=== PATIENT | female | born 1995 | race Two or more races ===

== ENCOUNTER 2017-07-23 18:21 | Emergency (ER) | payer OTHER ==
[~2017-07-23] VITALS: Ht 167.6 cm; Wt 68.0 kg
[~2017-07-23 18:21] MED LIST: BUCALSEP SPRAY30 ML MM; GILTUSS TR TAB1 EACH PO
== END 2017-07-23 22:55 | disposition home or self-care (01) ==
LOC: ER 18:21
DX: S13.4XXA Sprain of ligaments of cervical spine, initial encounter (principal); S46.812A Strain of other muscles, fascia and tendons at shoulder and upper arm level, left arm, initial encounter; V49.3XXA Car occupant (driver) (passenger) injured in unspecified nontraffic accident, initial encounter; Y93.89 Activity, other specified; Y92.488 Other paved roadways as the place of occurrence of the external cause; Y99.8 Other external cause status

== ENCOUNTER 2017-08-01 06:52 | Emergency (ER) | payer OTHER ==
[~2017-08-01] VITALS: Ht 170.2 cm; Wt 61.2 kg
[2017-08-01] MEDS ORDERED: ZITHROMAX200 MG PO (10:06)
[2017-08-01] MEDS ORDERED: TUSSI PRES-B L120 M1 PO (10:06)
== END 2017-08-01 10:40 | disposition home or self-care (01) ==
LOC: ER 06:52
DX: B34.9 Viral infection, unspecified (principal)

== ENCOUNTER 2018-07-14 14:34 | Emergency (ER) | payer OTHER ==
[~2018-07-14] VITALS: Ht 167.6 cm; Wt 70.8 kg
[~2018-07-14 14:34] MED LIST changes: +TUSSI PRES-B L120 M1 PO; +ZITHROMAX200 MG PO
== END 2018-07-14 15:25 | disposition home or self-care (01) ==
LOC: ER 14:34
DX: T78.49XA Other allergy, initial encounter (principal); R21 Rash and other nonspecific skin eruption

== ENCOUNTER → 2018-10-27 | Emergency (ER) | payer OTHER ==
[~2018-10-27] VITALS: Ht 167.6 cm; Wt 71.2 kg
== END | disposition home or self-care (01) ==
LOC: ER 11:18
DX: M54.89 Other dorsalgia (principal)